=== PATIENT | male | born 1955 | race Caucasian/White ===

== ENCOUNTER 2020-07-19 07:58 | Outpatient (REF) | payer MEDICAID, SELFPAY | END 2020-07-19 07:59 | disposition home or self-care (01) | LOC: HO.LAB 07:58 | PROVIDERS: PCP Nurse Practitioner Family; Visit Provider Internal Medicine | DX: Z20.828 Contact with and (suspected) exposure to other viral communicable diseases (principal) | CPT/HCPCS: U0003 ==

== ENCOUNTER → 2020-11-15 11:21 | Outpatient (REF) | payer MEDICAID, SELFPAY | LOC: HO.SL 11:21 | PROVIDERS: PCP Nurse Practitioner Family; Visit Provider Nurse Practitioner Family | DX: Z13.89 Encounter for screening for other disorder (principal) ==

== ENCOUNTER 2020-12-03 05:08 | Emergency (ER) | payer MEDICAID, SELFPAY ==
[2020-12-03 05:16] VITALS: BP 170/100; PULSE 60; RESP 18; TEMP 36.4; O2SAT 98; BMI 35.1
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
== END 2020-12-03 05:44 | disposition home or self-care (01) ==
PROVIDERS: Emergency Provider Emergency Medicine Emergency Medical Services; PCP Nurse Practitioner Family
DX: M10.9 Gout, unspecified (principal); I12.9 Hypertensive chronic kidney disease with stage 1 through stage 4 chronic kidney disease, or unspecified chronic kidney disease; N18.9 Chronic kidney disease, unspecified; E78.5 Hyperlipidemia, unspecified; M79.672 Pain in left foot; Q61.3 Polycystic kidney, unspecified; Z86.19 Personal history of other infectious and parasitic diseases; Z86.14 Personal history of Methicillin resistant Staphylococcus aureus infection; Z79.82 Long term (current) use of aspirin; Z79.899 Other long term (current) drug therapy
CPT/HCPCS: 99283

== ENCOUNTER 2020-12-08 07:22 | Outpatient (REF) | payer MEDICAID, SELFPAY ==
[2020-12-08 08:31] LABS: Carbon Dioxide 20 mmol/L (22-29); Chloride 108 mmol/L (96-108); Potassium 4.8 mmol/L (3.3-5.1); Sodium 140 mmol/L (135-145)
[2020-12-08 08:32] LABS: Alanine Aminotransferase < 6 U/L (0-40); Albumin Level 3.4 g/dL (3.5-5.0); Alkaline Phosphatase 73 U/L (39-117); Anion Gap 17 (12-20); Aspartate Amino Transferase 10 U/L (5-37); Bilirubin Total 0.7 mg/dL (0.0-1.0); Blood Urea Nitrogen 98 mg/dL (9-16); Calcium 8.7 mg/dL (8.4-10.2); Estimated Glomerular Filt Rate 8; Glucose Random 94 mg/dL (60-115); Total Protein 7.9 g/dL (6.5-8.0); Uric Acid 9.4 mg/dL (3.4-7.0)
== END 2020-12-08 07:23 | disposition home or self-care (01) ==
LOC: HO.LAB 07:22
PROVIDERS: PCP Nurse Practitioner Family; Visit Provider Student in an Organized Health Care Education/Training Program
DX: M10.9 Gout, unspecified (principal)
CPT/HCPCS: 36415; 80053; 84550

== ENCOUNTER 2020-12-08 09:41 | Emergency (ER) | payer MEDICAID, SELFPAY ==
--- NOTE | ~2020-12-08 | US_ITS ---
EXAMINATION: US RETROPERITONEAL LIMITED (RENAL ONLY) CLINICAL INFORMATION: Acute on chronic renal failure. COMPARISON: Previous renal ultrasound most recent November 2015, abdominal ultrasound February [address] of the abdomen and pelvis January 2019 TECHNIQUE: Grayscale and color imaging of the kidneys FINDINGS: RIGHT KIDNEY: 18.4 x 8.5 x 10.4 cm (SAG x AP x TRV). The kidney is enlarged and essentially replaced with cysts compatible with polycystic kidney disease. Largest cyst measures 6.2 x 4.5 x 6.6 cm in the lower pole. No renal mass, stone or hydronephrosis. LEFT KIDNEY: 20 x 11 x 10 cm (SAG x AP x TRV). The kidney is enlarged and essentially replaced with cysts. The largest cyst measures 6.7 x 4.5 x 4.9 cm in the midpole. No renal mass, stone or hydronephrosis. US/US renal BI IMPRESSION: Large kidneys essentially replaced with cysts compatible with polycystic kidney disease. No hydronephrosis..
[2020-12-08 09:48] VITALS: BP 176/85; PULSE 48; RESP 16; TEMP 36.8; O2SAT 98; BMI 30.7
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
[2020-12-08 10:40] LABS: Basophils Percent Auto 0.4 % (0-2); Hematocrit 36.6 % (42-52); Hemoglobin 11.8 g/dl (14.0-18.0); Imm Gran Abs Auto 0.05 X10*3/uL (0.00-0.03); Imm Gran Pct Auto 0.6 % (0.0-0.4); Lymphocytes Absolute Auto 0.6 X10*3/uL (1.2-4.9); Lymphocytes Percent Auto 7.2 % (20-40); MANUAL DIFF FLAG SCAN; Mean Corpuscular HGB Conc 32.2 g/dl (31.0-36.0); Mean Corpuscular Hemoglobin 29.1 pg (27.0-33.0); Mean Corpuscular Volume 90.1 fL (80-98); Mean Platelet Volume 12.2 fL (9.4-12.4); Monocytes Absolute Auto 0.7 X10*3/uL (0.1-1.2); Monocytes Percent Auto 8.3 % (2-11); Neutrophils Absolute Auto 6.9 X10*3/uL (2.0-8.3); Neutrophils Percent Auto 83.5 % (45-73); Platelet Count 193 X10*3/uL (160-400); Red Blood Count 4.06 X10*6/uL (4.60-5.80); Red Cell Distribution Width 13.4 % (11.0-16.0); SCAN SMEAR FLAG 1; White Blood Count 8.2 X10*3/uL (4.8-10.8)
[2020-12-08 11:01] LABS: SLIDE REVIEW VERIFIED
[2020-12-08] MEDS: 0.9 % Sodium Chloride 1,000 ML 999 ML IVCONT (11:03)
[2020-12-08 12:17] LABS: Alanine Aminotransferase < 6 U/L (0-40); Albumin Level 3.3 g/dL (3.5-5.0); Alkaline Phosphatase 69 U/L (39-117); Anion Gap 16 (12-20); Aspartate Amino Transferase 9 U/L (5-37); Bilirubin Direct < 0.2 mg/dL (0.0-0.5); Bilirubin Total 0.7 mg/dL (0.0-1.0); Blood Urea Nitrogen 93 mg/dL (9-16); Calcium 8.4 mg/dL (8.4-10.2); Carbon Dioxide 19 mmol/L (22-29); Chloride 110 mmol/L (96-108); Creatinine Clr Calc Pharmacy 13.6; Estimated Glomerular Filt Rate 8; Glucose Random 96 mg/dL (60-115); Magnesium 2.1 mg/dL (1.6-2.6); Potassium 4.6 mmol/L (3.3-5.1); Sodium 140 mmol/L (135-145); Total Protein 7.6 g/dL (6.5-8.0)
[2020-12-08 12:25] VITALS: BP 152/81; PULSE 55; RESP 18; TEMP 36.7; O2SAT 99
== END 2020-12-08 15:01 | disposition home or self-care (01) ==
PROVIDERS: Physician Assistant; Emergency Provider Emergency Medicine; PCP Nurse Practitioner Family
DX: I12.0 Hypertensive chronic kidney disease with stage 5 chronic kidney disease or end stage renal disease (principal); N18.6 End stage renal disease; Q61.3 Polycystic kidney, unspecified; B18.2 Chronic viral hepatitis C; E78.5 Hyperlipidemia, unspecified; Z86.14 Personal history of Methicillin resistant Staphylococcus aureus infection; Z79.82 Long term (current) use of aspirin; Z79.02 Long term (current) use of antithrombotics/antiplatelets; Z79.899 Other long term (current) drug therapy
CPT/HCPCS: 36415; 76775; 80048; 80076; 83735; 85025; 96360; 99284

== ENCOUNTER 2020-12-28 07:47 | Outpatient (REF) | payer MEDICAID, SELFPAY ==
--- NOTE | ~2020-12-28 | XR_ITS ---
EXAMINATION: XR ANKLE, LEFT CLINICAL INFORMATION: Pain COMPARISON: None TECHNIQUE: AP, lateral, and mortise views of the left ankle. FINDINGS: Bone alignment is normal. No fracture or dislocation is seen. The ankle mortise is normal. There is a plantar calcaneal spur. Soft tissues are unremarkable. XR/XR ankle LT min 3V IMPRESSION: Calcaneal spur otherwise unremarkable exam.
== END 2020-12-28 07:48 | disposition home or self-care (01) ==
LOC: HO.XRAY 07:47
PROVIDERS: PCP Nurse Practitioner; Visit Provider Nurse Practitioner
DX: M25.572 Pain in left ankle and joints of left foot (principal)
CPT/HCPCS: 73610

== ENCOUNTER 2021-01-04 13:00 | Outpatient (REF) | payer MEDICAID, SELFPAY ==
--- NOTE | ~2021-01-04 | MR_ITS ---
EXAMINATION: MR ANKLE WITHOUT CONTRAST, LEFT CLINICAL INFORMATION: Acute left ankle pain. Posterior tibiofibular ligament tenderness. COMPARISON: Left ankle radiographs dated 12/28/2020 TECHNIQUE: Multisequence MR images of the left ankle were obtained without contrast on a high-field strength scanner. FINDINGS: BONE AND ARTICULAR CARTILAGE: Mild marrow edema within the distal aspect of the fibula, likely reactive to the adjacent tendon pathology. Minimal degenerative arthritis at the 2nd tarsometatarsal joint. No stress reaction or fracture. No talar osteochondral lesion. ACHILLES TENDON: Intact. OTHER TENDONS: Mild fluid within the posterior tibialis tendon sheath, consistent with tenosynovitis. Flattening of the peroneal brevis tendon at the level of the lateral malleolus, consistent with longitudinal partial tearing. Fluid within the peroneal brevis and peroneal longus tendon sheaths, consistent with prominent tenosynovitis. Mild edema proximally within the myotendinous junction, consistent with mild muscle strains. No full-thickness transverse tendon defect. LIGAMENTS: Prominent thickening and abnormal signal at the posterior talofibular ligament, consistent with a high-grade sprain/partial tear. Attenuation and irregularity of the anterior talofibular ligament, consistent with a moderate sprain/partial tear. Diffuse thickening and abnormal signal throughout the deltoid ligament, consistent with a prominent sprain/partial tear. Intact deltoid ligament. JOINT FLUID AND SOFT TISSUES: Moderate tibiotalar joint effusion with synovitis. Small posterior subtalar joint effusion. Prominent circumferential subcutaneous edema. PLANTAR FASCIA: Plantar calcaneal spur with minimal marrow edema. Intact plantar fascia. SINUS TARSI AND TARSAL TUNNEL: Normal. MR/MR ankle LT wo con IMPRESSION: 1. Prominent sprain/partial tears of the posterior talofibular and calcaneofibular ligaments with a more moderate sprain/partial tear of the anterior talofibular ligament. Adjacent reactive marrow edema within the distal fibula. No definite fracture fragment. 2. Moderate tibiotalar joint effusion with synovitis. Small posterior subtalar joint effusion. Prominent circumferential subcutaneous edema. 3. Minimal degenerative arthritis at the 2nd tarsometatarsal joint. Plantar calcaneal spur with minimal marrow edema. 4. Longitudinal partial tearing of the peroneal brevis tendon at the level of the lateral malleolus with prominent peroneal brevis and peroneal longus tenosynovitis. More mild posterior tibialis tenosynovitis.
== END 2021-01-04 13:01 | disposition home or self-care (01) ==
LOC: HO.MRI 13:00
PROVIDERS: Visit Provider Nurse Practitioner
DX: M25.572 Pain in left ankle and joints of left foot (principal)
CPT/HCPCS: 73721

== ENCOUNTER 2021-01-17 08:20 | Outpatient (REF) | payer MEDICAID, SELFPAY ==
[2021-01-17 10:02] LABS: Anion Gap 13 (12-20); Blood Urea Nitrogen 67 mg/dL (9-16); Calcium 8.6 mg/dL (8.4-10.2); Carbon Dioxide 21 mmol/L (22-29); Chloride 113 mmol/L (96-108); Potassium 5.2 mmol/L (3.3-5.1); Sodium 142 mmol/L (135-145)
[2021-01-17 10:16] LABS: Estimated Glomerular Filt Rate 8
== END 2021-01-17 08:21 | disposition home or self-care (01) ==
LOC: HO.LAB 08:20
PROVIDERS: Visit Provider Internal Medicine Nephrology
DX: N17.9 Acute kidney failure, unspecified (principal)
CPT/HCPCS: 36415; 80051; 82310; 82565; 84520

== ENCOUNTER 2021-05-02 07:58 | Outpatient (REF) | payer MEDICAID, SELFPAY ==
[2021-05-02 09:01] LABS: MANUAL DIFF FLAG NO
[2021-05-02 09:06] LABS: Basophils Percent Auto 0.7 % (0-2); Eosinophils Absolute Auto 0.1 X10*3/uL (0.0-0.4); Hematocrit 39.4 % (42-52); Hemoglobin 12.3 g/dl (14.0-18.0); Imm Gran Abs Auto 0.04 X10*3/uL (0.00-0.03); Imm Gran Pct Auto 0.7 % (0.0-0.4); Lymphocytes Absolute Auto 0.6 X10*3/uL (1.2-4.9); Lymphocytes Percent Auto 9.9 % (20-40); Mean Corpuscular HGB Conc 31.2 g/dl (31.0-36.0); Mean Corpuscular Hemoglobin 28.1 pg (27.0-33.0); Mean Platelet Volume 12.3 fL (9.4-12.4); Monocytes Absolute Auto 0.6 X10*3/uL (0.1-1.2); Monocytes Percent Auto 10.2 % (2-11); Neutrophils Absolute Auto 4.7 X10*3/uL (2.0-8.3); Neutrophils Percent Auto 76.5 % (45-73); Platelet Count 228 X10*3/uL (160-400); Red Blood Count 4.38 X10*6/uL (4.60-5.80); Red Cell Distribution Width 13.6 % (11.0-16.0); White Blood Count 6.2 X10*3/uL (4.8-10.8)
[2021-05-02 09:25] LABS: Anion Gap 16 (12-20); Blood Urea Nitrogen 75 mg/dL (9-16); Calcium 8.7 mg/dL (8.4-10.2); Carbon Dioxide 19 mmol/L (22-29); Chloride 111 mmol/L (96-108); Estimated Glomerular Filt Rate 7; Phosphorus 4.9 mg/dL (2.7-4.5); Potassium 5.6 mmol/L (3.3-5.1); Sodium 140 mmol/L (135-145)
[2021-05-02 09:45] LABS: Vitamin D 25-OH Total 28.9 ng/mL (>30)
[2021-05-03 16:31] LABS: Calcium (PTHI) 8.8 mg/dL (8.6-10.3); PTHI 416 pg/mL (14-64)
== END 2021-05-02 07:59 | disposition home or self-care (01) ==
LOC: HO.LAB 07:58
PROVIDERS: PCP Nurse Practitioner Family; Visit Provider Internal Medicine Nephrology
DX: N18.5 Chronic kidney disease, stage 5 (principal); N25.81 Secondary hyperparathyroidism of renal origin; Q61.2 Polycystic kidney, adult type
CPT/HCPCS: 36415; 80051; 82306; 82310; 82565; 83970; 84100; 84520; 85025

== ENCOUNTER 2021-05-11 08:02 | Outpatient (REF) | payer MEDICAID, SELFPAY ==
--- NOTE | ~2021-05-11 | US_ITS ---
EXAMINATION: US ABDOMEN COMPLETE CLINICAL INFORMATION: Screening for HCC. COMPARISON: CT abdomen and pelvis 01/30/2019. Ultrasound abdomen complete 03/13/2018 and 06/04/2017. TECHNIQUE: Real-time imaging of the abdominal viscera. FINDINGS: PANCREAS: The pancreas is partially obscured by overlying gas. ABDOMINAL AORTA: The abdominal aorta is normal caliber. INFERIOR VENA CAVA: Visualized portions are normal. LIVER: Normal. The liver is normal in size. The liver contour is normal. Parenchymal echogenicity is normal. No focal hepatic lesion. There is no intrahepatic biliary duct dilatation seen. GALLBLADDER: The gallbladder is physiologically distended. Multiple mobile gallstones are present. No evidence of gallbladder wall thickening or pericholecystic fluid. There are comet tail non shadowing appearing lesion along the inner gallbladder wall suggestive of adenomyomatosis COMMON BILE DUCT: Normal in caliber measuring 0.4 cm in diameter. RIGHT KIDNEY: Multiple anechoic cysts of various sizes scattered throughout the right kidney with no normal renal parenchyma seen. No echogenic stone.. LEFT KIDNEY: There are multiple anechoic cysts of various sizes scattered throughout their left kidney without normal parenchyma or echogenic stones.. SPLEEN: The spleen measures 13.2 cm in maximum dimension. FREE FLUID: None. US/US abdomen complete IMPRESSION: Multiple bilateral renal cysts consistent with polycystic kidney disease. Mild splenomegaly measuring 13.2 cm. Rest of the abdominal ultrasound is unremarkable.
== END 2021-05-11 08:03 | disposition home or self-care (01) ==
LOC: HO.US 08:02
PROVIDERS: PCP Nurse Practitioner Family; Visit Provider Nurse Practitioner
DX: K74.60 Unspecified cirrhosis of liver (principal)
CPT/HCPCS: 76700

== ENCOUNTER 2021-06-02 10:11 | Outpatient (REF) | payer MEDICAID, SELFPAY ==
[2021-06-02 10:53] LABS: MANUAL DIFF FLAG NO
[2021-06-02 10:56] LABS: Basophils Percent Auto 0.6 % (0-2); Eosinophils Absolute Auto 0.1 X10*3/uL (0.0-0.4); Eosinophils Percent Auto 1.9 % (0-4); Hematocrit 39.2 % (42-52); Hemoglobin 12.5 g/dl (14.0-18.0); Imm Gran Abs Auto 0.03 X10*3/uL (0.00-0.03); Imm Gran Pct Auto 0.5 % (0.0-0.4); Lymphocytes Absolute Auto 0.7 X10*3/uL (1.2-4.9); Lymphocytes Percent Auto 11.4 % (20-40); Mean Corpuscular HGB Conc 31.9 g/dl (31.0-36.0); Mean Corpuscular Volume 87.9 fL (80-98); Mean Platelet Volume 11.9 fL (9.4-12.4); Monocytes Absolute Auto 0.6 X10*3/uL (0.1-1.2); Neutrophils Absolute Auto 4.9 X10*3/uL (2.0-8.3); Neutrophils Percent Auto 76.6 % (45-73); Platelet Count 261 X10*3/uL (160-400); Red Blood Count 4.46 X10*6/uL (4.60-5.80); Red Cell Distribution Width 13.7 % (11.0-16.0); White Blood Count 6.3 X10*3/uL (4.8-10.8)
[2021-06-02 11:44] LABS: Anion Gap 14 (12-20); Blood Urea Nitrogen 64 mg/dL (9-16); Calcium 8.9 mg/dL (8.4-10.2); Carbon Dioxide 19 mmol/L (22-29); Chloride 111 mmol/L (96-108); Estimated Glomerular Filt Rate 8; Phosphorus 4.4 mg/dL (2.7-4.5); Potassium 5.2 mmol/L (3.3-5.1); Sodium 139 mmol/L (135-145)
[2021-06-02 11:45] LABS: Vitamin D 25-OH Total 28.3 ng/mL (>30)
[2021-06-06 14:02] LABS: PTHI 458 pg/mL (14-64)
== END 2021-06-02 10:12 | disposition home or self-care (01) ==
LOC: HO.LAB 10:11
PROVIDERS: PCP Nurse Practitioner Family; Visit Provider Internal Medicine Nephrology
DX: Q61.2 Polycystic kidney, adult type (principal); I12.0 Hypertensive chronic kidney disease with stage 5 chronic kidney disease or end stage renal disease; N18.5 Chronic kidney disease, stage 5
CPT/HCPCS: 36415; 80051; 82306; 82310; 82565; 83970; 84100; 84520; 85025

== ENCOUNTER → 2021-06-29 12:45 | Outpatient (REF) | payer MEDICAID, SELFPAY | LOC: HO.SL 12:45 | PROVIDERS: PCP Nurse Practitioner; Visit Provider Nurse Practitioner | DX: G47.33 Obstructive sleep apnea (adult) (pediatric) (principal); R06.00 Dyspnea, unspecified; R06.83 Snoring; R40.0 Somnolence | CPT/HCPCS: 95806 ==

== ENCOUNTER 2021-09-19 08:27 | Outpatient (REF) | payer MEDICAID, SELFPAY ==
[2021-09-19 09:25] LABS: Basophils Percent Auto 0.5 % (0-2); Eosinophils Absolute Auto 0.1 X10*3/uL (0.0-0.4); Eosinophils Percent Auto 2.5 % (0-4); Hematocrit 37.2 % (42.0-52.0); Hemoglobin 11.9 g/dl (14.0-18.0); Imm Gran Abs Auto 0.02 X10*3/uL (0.00-0.03); Imm Gran Pct Auto 0.4 % (0.0-0.4); Lymphocytes Absolute Auto 0.7 X10*3/uL (1.2-4.9); Lymphocytes Percent Auto 12.1 % (20-40); MANUAL DIFF FLAG SCAN; Mean Corpuscular Hemoglobin 29.1 pg (27.0-33.0); Monocytes Absolute Auto 0.6 X10*3/uL (0.1-1.2); Monocytes Percent Auto 9.8 % (2-11); Neutrophils Absolute Auto 4.2 x10*3/uL (2.0-8.3); Neutrophils Percent Auto 74.7 % (45-73); PLT CLUMP 1; Red Blood Count 4.09 X10*6/uL (4.60-5.80); Red Cell Distribution Width 14.3 % (11.0-16.0); SCAN SMEAR FLAG 1
[2021-09-19 09:26] LABS: White Blood Count 5.6 X10*3/uL (4.8-10.8)
[2021-09-19 09:29] LABS: INTERNATIONAL NORM RATIO 1.2 (0.9-1.1); Prothrombin Time 13.7 SEC (9.9-13.0)
[2021-09-19 09:45] LABS: Anion Gap 15 (12-20); Blood Urea Nitrogen 74 mg/dL (9-16); Calcium 9.1 mg/dL (8.4-10.2); Carbon Dioxide 16 mmol/L (22-29); Chloride 116 mmol/L (96-108); Estimated Glomerular Filt Rate 6; Potassium 5.6 mmol/L (3.3-5.1); Sodium 141 mmol/L (135-145)
[2021-09-19 09:58] LABS: Platelet Count 168 X10*3/uL (160-400); SLIDE REVIEW VERIFIED
== END 2021-09-19 08:28 | disposition home or self-care (01) ==
LOC: HO.LAB 08:27
PROVIDERS: PCP Nurse Practitioner Family; Visit Provider Internal Medicine Nephrology
DX: I12.0 Hypertensive chronic kidney disease with stage 5 chronic kidney disease or end stage renal disease (principal); N18.5 Chronic kidney disease, stage 5; Q61.2 Polycystic kidney, adult type; N25.81 Secondary hyperparathyroidism of renal origin
CPT/HCPCS: 36415; 80051; 82310; 82565; 84520; 85025; 85610

== ENCOUNTER 2021-11-08 14:23 | Outpatient (REF) | payer MEDICAID, SELFPAY ==
[2021-11-08 16:15] LABS: Anion Gap 14 (12-20); Blood Urea Nitrogen 73 mg/dL (9-16); Calcium 8.8 mg/dL (8.4-10.2); Carbon Dioxide 19 mmol/L (22-29); Chloride 111 mmol/L (96-108); Estimated Glomerular Filt Rate 5; Potassium 5.3 mmol/L (3.3-5.1); Sodium 139 mmol/L (135-145)
== END 2021-11-08 14:24 | disposition home or self-care (01) ==
LOC: HO.LAB 14:23
PROVIDERS: PCP Nurse Practitioner Family; Visit Provider Internal Medicine Nephrology
DX: I12.0 Hypertensive chronic kidney disease with stage 5 chronic kidney disease or end stage renal disease (principal); N18.5 Chronic kidney disease, stage 5; Q61.2 Polycystic kidney, adult type; N25.81 Secondary hyperparathyroidism of renal origin
CPT/HCPCS: 36415; 80051; 82310; 82565; 84520

== ENCOUNTER 2022-01-09 18:35 | Emergency (ER) | payer MEDICAID, SELFPAY ==
[2022-01-09 18:43] VITALS: BP 96/62; PULSE 70; RESP 20; TEMP 36.7; O2SAT 97; BMI 30.7
== END 2022-01-09 20:41 | disposition left against medical advice (07) ==
PROVIDERS: Emergency Provider Emergency Medicine
DX: R07.89 Other chest pain (principal); R42 Dizziness and giddiness
CPT/HCPCS: 99281

== ENCOUNTER 2022-05-10 18:18 | Emergency (ER) | payer MEDICAID, SELFPAY ==
--- NOTE | ~2022-05-10 | CT_ITS ---
EXAMINATION: CT HEAD WITHOUT CONTRAST CLINICAL INFORMATION: Syncope COMPARISON: Head CT 01/08/2019 TECHNIQUE: Contiguous axial imaging was performed from the skull base to vertex without intravenous administration of contrast. This CT examination was performed using dose optimization techniques as appropriate, variously including the following: *Automated exposure control *Adjustment of mA and/or kV according to patient size (this includes techniques or standardized protocols for targeted exams where dose is matched to indication/reason for exam; i.e. extremities or head) *Use of iterative reconstruction technique DLP: 784 mGy-cm FINDINGS: There is no evidence of acute intracranial hemorrhage or territorial infarction. No abnormal mass effect or midline shift is appreciated. Adame-white differentiation is well preserved. No extra-axial fluid collections. The ventricular system and cortical sulci are one size. There are subtle areas of low density in the periventricular and subcortical white matter, most consistent with sequelae of microvascular ischemic change. The osseous structures and soft tissues are normal. There are calcifications of the cavernous internal carotid arteries. The visualized paranasal sinuses and mastoid air cells are well aerated. Minimal mucosal thickening of the left maxillary sinus. CT/CT head/brain wo con IMPRESSION: No CT evidence for acute intracranial pathology.
--- NOTE | ~2022-05-10 | XR_ITS ---
EXAMINATION: XR CHEST CLINICAL INFORMATION: Syncope COMPARISON: Chest x-ray 01/08/2019 TECHNIQUE: Frontal view of the chest was obtained. FINDINGS: Cardiac silhouette is normal in size. Tunneled right-sided dialysis catheter in expected position with tip terminating at the cavoatrial junction. Lungs are mildly hypoinflated. There is no lobar consolidation. No pleural effusion or pneumothorax. XR/XR chest 1V IMPRESSION: No acute pulmonary pathology.
--- NOTE | 2022-05-10 18:31 | ECG_ITS ---
Test Reason : SYNCOPE Blood Pressure : / mmHG Vent. Rate : 059 BPM Atrial Rate : 059 BPM P-R Int : 144 ms QRS Dur : 082 ms QT Int : 494 ms P-R-T Axes : 076 029 082 degrees QTc Int : 489 ms Sinus bradycardia with sinus arrhythmia Possible Inferior infarct (cited on or before 21-AUG-2006) Abnormal ECG When compared with ECG of 08-JAN-2019 01:21, T wave inversion less evident in Lateral leads ST more elevated in Inferior leads QT has lengthened Referred By: Diane Romero Electronically Signed By:CRYSTAL ELDRIDGE
[2022-05-10 18:33] VITALS: BP 74/52; PULSE 74; O2SAT 95
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
[2022-05-10 18:58] LABS: MANUAL DIFF FLAG NO
[2022-05-10 19:01] LABS: Basophils Absolute Auto 0.1 X10*3/uL (0.0-0.2); Eosinophils Absolute Auto 0.1 X10*3/uL (0.0-0.4); Eosinophils Percent Auto 1.7 % (0-4); Hematocrit 44.1 % (42.0-52.0); Hemoglobin 14.5 g/dl (14.0-18.0); Imm Gran Abs Auto 0.03 X10*3/uL (0.00-0.03); Imm Gran Pct Auto 0.5 % (0.0-0.4); Lymphocytes Absolute Auto 0.8 X10*3/uL (1.2-4.9); Lymphocytes Percent Auto 13.1 % (20-40); Mean Corpuscular HGB Conc 32.9 g/dl (31.0-36.0); Mean Corpuscular Volume 94.4 fL (80.0-98.0); Mean Platelet Volume 11.4 fL (9.4-12.4); Monocytes Absolute Auto 0.8 X10*3/uL (0.1-1.2); Monocytes Percent Auto 12.7 % (2-11); Neutrophils Absolute Auto 4.3 x10*3/uL (2.0-8.3); Platelet Count 190 X10*3/uL (160-400); Red Blood Count 4.67 X10*6/uL (4.60-5.80); Red Cell Distribution Width 15.9 % (11.0-16.0); White Blood Count 6.1 X10*3/uL (4.8-10.8)
[2022-05-10 19:15] VITALS: BP 107/72; PULSE 59; RESP 16; O2SAT 95; BMI 29.5
[2022-05-10 19:16] LABS: COVID-19 Test Negative (Negative)
[2022-05-10 19:23] LABS: B Type Natriuretic Peptide 305 pg/mL (<100); Troponin-I High Sensitivity 17.3 ng/L (<3.5-35.0)
[2022-05-10 19:32] VITALS: BP 108/72; PULSE 57
[2022-05-10 19:33] VITALS: BP 118/67; PULSE 60
[2022-05-10 19:34] VITALS: BP 110/65; PULSE 66
[2022-05-10 19:35] LABS: Alanine Aminotransferase 8 U/L (0-40); Albumin Level 3.5 g/dL (3.5-5.0); Alkaline Phosphatase 69 U/L (39-117); Anion Gap 18 (12-20); Aspartate Amino Transferase 12 U/L (5-37); Bilirubin Direct 0.2 mg/dL (0.0-0.5); Bilirubin Total 0.8 mg/dL (0.0-1.0); Blood Urea Nitrogen 31 mg/dL (9-16); Calcium 9.3 mg/dL (8.4-10.2); Carbon Dioxide 27 mmol/L (22-29); Chloride 99 mmol/L (96-108); Creatinine Clr Calc Pharmacy 10.5; Estimated Glomerular Filt Rate 7; Glucose Random 144 mg/dL (60-115); Lipase 55 U/L (8-78); Potassium 4.5 mmol/L (3.3-5.1); Sodium 139 mmol/L (135-145)
--- NOTE | 2022-05-10 19:45 | PC.NURSE ---
Reported critical lab of creat 8.34 to JONATAN Gallardo and Isaac.
[2022-05-10 19:46] VITALS: BP 108/72; PULSE 66; RESP 16; TEMP 36.9; O2SAT 95
== END 2022-05-10 20:15 | disposition left against medical advice (07) ==
PROVIDERS: Emergency Provider Emergency Medicine
DX: R55 Syncope and collapse (principal); R06.02 Shortness of breath; Z20.822 Contact with and (suspected) exposure to COVID-19; Z79.899 Other long term (current) drug therapy
CPT/HCPCS: 70450; 71045; 80048; 80076; 83690; 83880; 84484; 85025; 87635; 93005; 99284

== ENCOUNTER → 2022-08-04 11:58 | Outpatient (BNVA) | payer MEDICARE, MEDICAID, SELFPAY | PROVIDERS: Visit Provider Nurse Practitioner Family | DX: Z12.11 Encounter for screening for malignant neoplasm of colon (principal); K21.9 Gastro-esophageal reflux disease without esophagitis | CPT/HCPCS: 99202 ==

== ENCOUNTER 2023-04-12 09:32 | Outpatient (AMB) | payer MEDICARE, MEDICAID, SELFPAY ==
[2023-04-12 09:36] VITALS: BP 136/84; PULSE 61; BMI 31.9
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
== END 2023-04-12 10:02 | disposition home or self-care (01) ==
PROVIDERS: PCP Registered Nurse; Referring Provider Registered Nurse; Visit Provider Internal Medicine
DX: I25.10 Atherosclerotic heart disease of native coronary artery without angina pectoris (principal)
CPT/HCPCS: 93010; 99203

== ENCOUNTER → 2023-04-12 09:32 | Outpatient (BNVA) | payer MEDICARE, MEDICAID, SELFPAY | PROVIDERS: PCP Registered Nurse; Referring Provider Registered Nurse; Visit Provider Internal Medicine | DX: I25.10 Atherosclerotic heart disease of native coronary artery without angina pectoris (principal) | CPT/HCPCS: 93005; 99202 ==

== ENCOUNTER 2023-05-12 19:03 | Emergency (ER) | payer MEDICARE, MEDICAID, SELFPAY ==
[2023-05-12] VITALS (7 sets, daily range): BP systolic 102–126; BP diastolic 56–73; PULSE 53–64; RESP 11–15; TEMP 37.2; O2SAT 96; BMI 31.7
--- NOTE | ~2023-05-12 | XR_ITS ---
EXAMINATION: XR CHEST CLINICAL INFORMATION: Dizziness, nausea. COMPARISON: Chest radiograph 05/10/2022. TECHNIQUE: 2 views of the chest were obtained. FINDINGS: Stable cardiomediastinal silhouette. No focal airspace opacity, pleural effusion or pneumothorax. No acute osseous findings. Thoracic spondylosis. Visualized upper abdomen is within normal limits. XR/XR chest 2V IMPRESSION: No acute cardiopulmonary findings.
--- NOTE | 2023-05-12 19:26 | ECG_ITS ---
Test Reason : DIZZINESS Blood Pressure : / mmHG Vent. Rate : 055 BPM Atrial Rate : 055 BPM P-R Int : 148 ms QRS Dur : 100 ms QT Int : 476 ms P-R-T Axes : 054 -11 071 degrees QTc Int : 455 ms Sinus bradycardia Moderate voltage criteria for LVH, may be normal variant ( R in aVL , John product ) Inferior infarct (cited on or before 21-AUG-2006) Possible Anterior infarct , age undetermined Abnormal ECG When compared with ECG of 10-MAY-2022 19:42, Nonspecific T wave abnormality no longer evident in Anterior leads Referred By: Carley Brown Electronically Signed By:CRYSTAL ELDRIDGE
--- NOTE | 2023-05-12 19:39 | PC.NURSE ---
Pt ca&ox4, no signs of distress. Pt denies pain, nausea, dizziness at this time. Pt changed into hospital attire. Pt placed on bedside monitor. Plan of care ongoing.
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
[2023-05-12 19:54] LABS: MANUAL DIFF FLAG NO
--- NOTE | 2023-05-12 19:54 | PC.NURSE ---
Pt A&Ox3, pt reports no pain at the moment, denies N/V, lightheadedness. IV line placed in right forearm, labs drawn and sent to lab. Pt resting quietly with no apparent distress.
[2023-05-12 19:58] LABS: Basophils Absolute Auto 0.1 X10*3/uL (0.0-0.2); Eosinophils Absolute Auto 0.1 X10*3/uL (0.0-0.4); Hemoglobin 14.9 g/dl (14.0-18.0); Imm Gran Abs Auto 0.03 X10*3/uL (0.00-0.03); Imm Gran Pct Auto 0.5 % (0.0-0.4); Lymphocytes Absolute Auto 0.8 X10*3/uL (1.2-4.9); Lymphocytes Percent Auto 13.3 % (20-40); Mean Corpuscular HGB Conc 33.9 g/dl (31.0-36.0); Mean Corpuscular Hemoglobin 33.8 pg (27.0-33.0); Mean Corpuscular Volume 99.8 fL (80.0-98.0); Monocytes Absolute Auto 0.6 X10*3/uL (0.1-1.2); Monocytes Percent Auto 9.7 % (2-11); Neutrophils Absolute Auto 4.4 x10*3/uL (2.0-8.3); Neutrophils Percent Auto 74.5 % (45-73); Platelet Count 209 X10*3/uL (160-400); Red Blood Count 4.41 X10*6/uL (4.60-5.80); Red Cell Distribution Width 13.7 % (11.0-16.0); White Blood Count 5.9 X10*3/uL (4.8-10.8)
[2023-05-12 20:20] LABS: Alanine Aminotransferase 9 U/L (0-40); Albumin Level 3.6 g/dL (3.5-5.0); Alkaline Phosphatase 79 U/L (39-117); Anion Gap 16 (12-20); Aspartate Amino Transferase 16 U/L (5-37); Bilirubin Direct 0.2 mg/dL (0.0-0.5); Bilirubin Total 0.8 mg/dL (0.0-1.0); Blood Urea Nitrogen 41 mg/dL (9-16); Calcium 9.7 mg/dL (8.4-10.2); Carbon Dioxide 30 mmol/L (22-29); Chloride 95 mmol/L (96-108); Creatinine Clr Calc Pharmacy 8.4; Estimated Glomerular Filt Rate 5; Glucose Random 123 mg/dL (60-115); Magnesium 2.3 mg/dL (1.6-2.6); Potassium 4.5 mmol/L (3.3-5.1); Sodium 136 mmol/L (135-145); Total Protein 8.6 g/dL (6.5-8.0); Troponin-I High Sensitivity 30.6 ng/L (<3.5-35.0)
[2023-05-12 23:02] LABS: Troponin-I High Sensitivity 33.3 ng/L (<3.5-35.0)
== END 2023-05-12 23:16 | disposition home or self-care (01) ==
PROVIDERS: Nurse Practitioner Family; Emergency Provider Emergency Medicine
DX: R55 Syncope and collapse (principal); I12.0 Hypertensive chronic kidney disease with stage 5 chronic kidney disease or end stage renal disease; N18.6 End stage renal disease; Z99.2 Dependence on renal dialysis; E78.5 Hyperlipidemia, unspecified; F12.90 Cannabis use, unspecified, uncomplicated; Z86.14 Personal history of Methicillin resistant Staphylococcus aureus infection; Z79.82 Long term (current) use of aspirin; Z79.899 Other long term (current) drug therapy
CPT/HCPCS: 36415; 71046; 80048; 80076; 83735; 84484; 85025; 93005; 99284; 99285

== ENCOUNTER 2023-07-17 12:03 | Outpatient (REF) | payer MEDICARE, MEDICAID, SELFPAY | END 2023-07-17 12:04 | disposition home or self-care (01) | LOC: HO.HHCL 12:03 | PROVIDERS: Visit Provider Student in an Organized Health Care Education/Training Program | DX: Z13.89 Encounter for screening for other disorder (principal) ==

== ENCOUNTER 2023-07-19 08:45 | Outpatient (REF) | payer MEDICARE, MEDICAID, SELFPAY ==
[2023-07-19 11:17] LABS: MANUAL DIFF FLAG NO
[2023-07-19 11:21] LABS: Basophils Absolute Auto 0.1 X10*3/uL (0.0-0.2); Basophils Percent Auto 1.1 % (0-2); Eosinophils Absolute Auto 0.1 X10*3/uL (0.0-0.4); Eosinophils Percent Auto 2.4 % (0-4); Hematocrit 43.2 % (42.0-52.0); Hemoglobin 14.6 g/dl (14.0-18.0); Imm Gran Abs Auto 0.01 X10*3/uL (0.00-0.03); Imm Gran Pct Auto 0.2 % (0.0-0.4); Lymphocytes Absolute Auto 0.8 X10*3/uL (1.2-4.9); Lymphocytes Percent Auto 15.6 % (20-40); Mean Corpuscular HGB Conc 33.8 g/dl (31.0-36.0); Mean Corpuscular Hemoglobin 32.2 pg (27.0-33.0); Mean Corpuscular Volume 95.2 fL (80.0-98.0); Mean Platelet Volume 11.4 fL (9.4-12.4); Monocytes Absolute Auto 0.7 X10*3/uL (0.1-1.2); Monocytes Percent Auto 12.4 % (2-11); Neutrophils Absolute Auto 3.6 x10*3/uL (2.0-8.3); Neutrophils Percent Auto 68.3 % (45-73); Platelet Count 198 X10*3/uL (160-400); Red Blood Count 4.54 X10*6/uL (4.60-5.80); White Blood Count 5.3 X10*3/uL (4.8-10.8)
[2023-07-19 11:31] LABS: Estimated Average Glucose 82 mg/dL; Hemoglobin A1c % 4.5 % (<6.0)
[2023-07-19 11:43] LABS: Alanine Aminotransferase 9 U/L (0-40); Albumin Level 3.6 g/dL (3.5-5.0); Alkaline Phosphatase 89 U/L (39-117); Anion Gap 12 (12-20); Aspartate Amino Transferase 13 U/L (5-37); Bilirubin Total 1.2 mg/dL (0.0-1.0); Blood Urea Nitrogen 34 mg/dL (9-16); Calcium 9.2 mg/dL (8.4-10.2); Carbon Dioxide 30 mmol/L (22-29); Chloride 99 mmol/L (96-108); Cholesterol 188 mg/dL (<200); Estimated Glomerular Filt Rate 7; Glucose Random 87 mg/dL (60-115); HDL Cholesterol 33 mg/dL (>40); LDL Cholesterol Calculated 136 mg/dL (<100); Potassium 4.1 mmol/L (3.3-5.1); Sodium 137 mmol/L (135-145); Total Protein 8.7 g/dL (6.5-8.0); Triglycerides 98 mg/dL (<150)
[2023-07-19 12:02] LABS: HBS Num1 98.88 mIU/mL (0-7.99); HBc Num1 0.04 S/CO (0.00-0.79); HBsAGNum1 0.38 S/CO (0.00-0.99); HIV AB/AG Nonreactive (Nonreactive); HIV Num 1 0.04 S/CO (0.00-0.99); Hepatitis B Core Antibody Nonreactive (Nonreactive); Hepatitis B Surface Antigen Negative (Negative); ~HepC Num1 12.08 S/CO (0.00-0.79); ~Hepatitis B Surface Antibody REACTIVE (Nonreactive); ~Hepatitis C Antibody Reactive (Nonreactive)
[2023-07-19 12:04] LABS: TSH reflex Free T4 1.13 uIU/mL (0.32-4.0)
[2023-07-19 12:11] LABS: Prostate Specific Antigen 1.26 ng/mL (<0.05-4.0); Vitamin B12 309 pg/mL (200-900)
[2023-07-19 12:38] LABS: Creatinine Urine 85.77 mg/dL
[2023-07-19 12:48] LABS: Microalbum/Creatinine Ratio Ur 2303.8 ug/mg cr (<30)
[2023-07-19 12:50] LABS: Syphilis Screen Nonreactive (Nonreactive)
[2023-07-19 13:07] LABS: Folate 5.1 ng/mL (> or = 4.0)
[2023-07-21 23:02] LABS: TS Negative Control Passed; TS Panel A 0; TS Panel B 0; TS Positive Control Passed; TSpotTB Negative (Negative)
[2023-07-24 01:29] LABS: VITAMIN D (1,25 OH) D3 50 pg/mL; Vit D (1,25-Dihydroxy) Total 50 pg/mL (18-72); Vitamin D (1,25 OH) D2 <8 pg/mL
[2023-07-24 18:09] LABS: HCV Log PCR <1.18 NOT DETECTED Log IU/mL (NOT DETECTED); HepC Viral Load <15 NOT DETECTED IU/mL (NOT DETECTED)
== END 2023-07-19 08:46 | disposition home or self-care (01) ==
LOC: HO.HHCL 08:45
PROVIDERS: Visit Provider Student in an Organized Health Care Education/Training Program
DX: Z00.00 Encounter for general adult medical examination without abnormal findings (principal); Z12.5 Encounter for screening for malignant neoplasm of prostate; Z11.59 Encounter for screening for other viral diseases; Z11.1 Encounter for screening for respiratory tuberculosis; Z11.4 Encounter for screening for human immunodeficiency virus [HIV]; Z20.2 Contact with and (suspected) exposure to infections with a predominantly sexual mode of transmission; Z72.89 Other problems related to lifestyle; E78.5 Hyperlipidemia, unspecified; Z13.21 Encounter for screening for nutritional disorder; Z13.1 Encounter for screening for diabetes mellitus; Z13.29 Encounter for screening for other suspected endocrine disorder
CPT/HCPCS: 36415; 80053; 80061; 82043; 82570; 82607; 82652; 82746; 83036; 84153; 84443; 85025; 86481; 86704; 86706; 86780; 86803; 87340; 87389; 87522

== ENCOUNTER 2023-09-05 13:40 | Outpatient (REF) | payer MEDICARE, MEDICAID, SELFPAY ==
--- NOTE | ~2023-09-05 | XR_ITS ---
EXAMINATION: XR LUMBOSACRAL SPINE CLINICAL INFORMATION: Low back pain. COMPARISON: CT abdomen and pelvis 01/30/2019. TECHNIQUE: Three views of the lumbosacral spine. FINDINGS: Degenerative changes are present with disc space narrowing at L4-L5 and L5-S1. No fractures or bony destructive lesions are seen. There is marked aortoiliac calcifications seen with possible infrarenal abdominal aortic aneurysm although only ectasia and calcification was seen previously. XR/XR lumbar spine 2-3V IMPRESSION: 1. Degenerative changes L4-S1. 2. Aortoiliac calcifications with possible infrarenal abdominal aortic aneurysm. Aortic ultrasound is recommended for further evaluation.
== END 2023-09-05 13:41 | disposition home or self-care (01) ==
LOC: HO.HHCX 13:40
PROVIDERS: Visit Provider Student in an Organized Health Care Education/Training Program
DX: M54.50 Low back pain, unspecified (principal); G89.29 Other chronic pain
CPT/HCPCS: 72100

== ENCOUNTER 2024-01-11 08:34 | Outpatient (REF) | payer MEDICARE, MEDICAID, SELFPAY ==
[2024-01-11 10:10] LABS: Alanine Aminotransferase 18 U/L (0-40); Albumin Level 3.8 g/dL (3.5-5.0); Alkaline Phosphatase 147 U/L (39-117); Aspartate Amino Transferase 19 U/L (5-37); Bilirubin Direct 0.2 mg/dL (0.0-0.5); Bilirubin Total 0.6 mg/dL (0.0-1.0); Total Protein 8.6 g/dL (6.5-8.0)
== END 2024-01-11 08:35 | disposition home or self-care (01) ==
LOC: HO.LAB 08:34
PROVIDERS: PCP Student in an Organized Health Care Education/Training Program; Visit Provider Nurse Practitioner Family
DX: K21.9 Gastro-esophageal reflux disease without esophagitis (principal); R74.01 Elevation of levels of liver transaminase levels; K59.01 Slow transit constipation
CPT/HCPCS: 36415; 80076; 99212

== ENCOUNTER 2024-01-11 08:34 | Outpatient (AMB) | payer MEDICARE, MEDICAID, SELFPAY ==
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
[2024-01-11 08:43] VITALS: BP 155/80; PULSE 65; BMI 33.4
== END 2024-01-11 09:05 | disposition home or self-care (01) ==
PROVIDERS: PCP Student in an Organized Health Care Education/Training Program; Visit Provider Nurse Practitioner Family
DX: K21.9 Gastro-esophageal reflux disease without esophagitis (principal); K59.01 Slow transit constipation
CPT/HCPCS: 99213

== ENCOUNTER 2024-02-15 11:10 | Outpatient (AMB) | payer MEDICARE, MEDICAID, SELFPAY ==
[2024-02-15 11:29] VITALS: BP 140/88; PULSE 72; O2SAT 97; BMI 34.5
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
== END 2024-02-15 12:08 | disposition home or self-care (01) ==
PROVIDERS: PCP Student in an Organized Health Care Education/Training Program; Visit Provider Nurse Practitioner Family
DX: R53.83 Other fatigue (principal); G47.9 Sleep disorder, unspecified; R06.83 Snoring
CPT/HCPCS: 99204; 99214

== ENCOUNTER → 2024-02-15 11:10 | Outpatient (BNVA) | payer MEDICARE, MEDICAID, SELFPAY | PROVIDERS: PCP Student in an Organized Health Care Education/Training Program; Visit Provider Nurse Practitioner Family | DX: R53.83 Other fatigue (principal); G47.9 Sleep disorder, unspecified; R06.83 Snoring | CPT/HCPCS: 99202 ==

== ENCOUNTER 2024-07-24 09:02 | Outpatient (REF) | payer MEDICARE, MEDICAID, SELFPAY ==
[2024-07-24 11:35] LABS: Estimated Average Glucose 108 mg/dL; Hematocrit 51.6 % (42.0-52.0); Hemoglobin A1C 150.2671 umol/L; Hemoglobin A1c % 5.4 % (<6.0); Mean Corpuscular Hemoglobin 28.2 pg (27.0-33.0); Mean Platelet Volume 11.9 fL (9.4-12.4); Platelet Count 154 X10*3/uL (160-400); Red Blood Count 5.67 X10*6/uL (4.60-5.80); Red Cell Distribution Width 15.2 % (11.0-16.0); Total Hemoglobin (HGBA1C) 4245.3378 umol/L; White Blood Count 4.9 X10*3/uL (4.8-10.8)
[2024-07-24 12:03] LABS: Alanine Aminotransferase 25 U/L (0-40); Albumin Level 3.8 g/dL (3.5-5.0); Alkaline Phosphatase 91 U/L (39-117); Anion Gap 12 (12-20); Aspartate Amino Transferase 23 U/L (5-37); Blood Urea Nitrogen 41 mg/dL (9-16); Calcium 9.6 mg/dL (8.4-10.2); Carbon Dioxide 20 mmol/L (22-29); Chloride 113 mmol/L (96-108); Cholesterol 150 mg/dL (<200); Estimated Glomerular Filt Rate 28; Glucose Random 89 mg/dL (60-115); HDL Cholesterol 51 mg/dL (>40); Iron 118 mcg/dL (45-160); LDL Cholesterol Calculated 76 mg/dL (<100); Percent Iron Saturation 56 % (15-50); Potassium 4.4 mmol/L (3.3-5.1); Sodium 141 mmol/L (135-145); Syphilis Screen Nonreactive (Nonreactive); Total Iron Binding Capacity 209 mcg/dL (228-428); Total Protein 7.4 g/dL (6.5-8.0); Triglycerides 115 mg/dL (<150); Unsaturated Iron Binding 91 ug/dL
[2024-07-24 12:23] LABS: Folate 5.6 ng/mL (> or = 4.0); Prostate Specific Antigen 1.13 ng/mL (<0.05-4.0); Vitamin B12 292 pg/mL (200-900)
[2024-07-24 12:24] LABS: Ferritin 824 ng/mL (20-250); TSH reflex Free T4 0.77 uIU/mL (0.32-4.0)
[2024-07-24 12:26] LABS: HBS Num1 14.69 mIU/mL (0-7.99); HBc Num1 0.08 S/CO (0.00-0.79); HIV AB/AG Nonreactive (Nonreactive); HIV Num 1 0.06 S/CO (0.00-0.99); Hepatitis B Core Antibody Nonreactive (Nonreactive); Hepatitis B Surface Antigen Negative (Negative); ~HepC Num1 13.77 S/CO (0.00-0.79); ~Hepatitis B Surface Antibody REACTIVE (Nonreactive); ~Hepatitis C Antibody Reactive (Nonreactive)
[2024-07-28 17:59] LABS: HCV Log PCR <1.18 NOT DETECTED Log IU/mL (NOT DETECTED); HepC Viral Load <15 NOT DETECTED IU/mL (NOT DETECTED)
== END 2024-07-24 09:03 | disposition home or self-care (01) ==
LOC: HO.HHCL 09:02
PROVIDERS: Visit Provider Student in an Organized Health Care Education/Training Program
DX: Z00.00 Encounter for general adult medical examination without abnormal findings (principal); E78.2 Mixed hyperlipidemia; K70.0 Alcoholic fatty liver; Z11.59 Encounter for screening for other viral diseases; Z72.89 Other problems related to lifestyle
CPT/HCPCS: 36415; 80053; 80061; 82607; 82728; 82746; 83036; 83540; 84153; 84443; 84550; 85027; 86704; 86706; 86780; 86803; 87340; 87389; 87522

== ENCOUNTER 2024-08-06 10:10 | Outpatient (REF) | payer MEDICAID, SELFPAY | END 2024-08-06 10:11 | disposition home or self-care (01) | LOC: HO.US 10:10 | PROVIDERS: PCP Student in an Organized Health Care Education/Training Program; Visit Provider Student in an Organized Health Care Education/Training Program | DX: K70.0 Alcoholic fatty liver (principal) | CPT/HCPCS: 76700; 76981 ==

== ENCOUNTER → 2024-08-06 10:13 | Outpatient (BNV) | payer MEDICARE, MEDICAID, SELFPAY | PROVIDERS: PCP Student in an Organized Health Care Education/Training Program; Visit Provider Radiology Diagnostic Radiology | DX: B19.20 Unspecified viral hepatitis C without hepatic coma (principal) | CPT/HCPCS: 76700; 76981 ==

== ENCOUNTER 2024-09-03 08:43 | Outpatient (AMB) | payer MEDICARE, MEDICAID, SELFPAY ==
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
[2024-09-03 08:59] VITALS: BP 140/86; PULSE 57; O2SAT 97; BMI 35.7
== END 2024-09-03 09:24 | disposition home or self-care (01) ==
PROVIDERS: PCP Student in an Organized Health Care Education/Training Program; Visit Provider Nurse Practitioner Family
DX: R53.83 Other fatigue (principal); G47.9 Sleep disorder, unspecified; R06.83 Snoring; R25.2 Cramp and spasm
CPT/HCPCS: 99214

== ENCOUNTER → 2024-09-03 08:43 | Outpatient (BNVA) | payer MEDICARE, MEDICAID, SELFPAY | PROVIDERS: PCP Student in an Organized Health Care Education/Training Program; Visit Provider Nurse Practitioner Family | DX: R53.83 Other fatigue (principal); R06.83 Snoring; R25.2 Cramp and spasm; G47.9 Sleep disorder, unspecified | CPT/HCPCS: 99212 ==